=== PATIENT | male | born 1950 | race Caucasian/White ===

== ENCOUNTER 2016-08-01 01:24 | Emergency (ER) | payer MEDICARE, OTHER | END 2016-08-01 02:38 | disposition home or self-care (01) | LOC: D.ER 01:24 | DX: F41.9 Anxiety disorder, unspecified (principal); G89.29 Other chronic pain; I10 Essential (primary) hypertension ==

== ENCOUNTER 2016-08-01 04:41 | Emergency (ER) | payer MEDICARE, OTHER | END 2016-08-01 07:00 | disposition home or self-care (01) | LOC: D.ER 04:41 | DX: F41.9 Anxiety disorder, unspecified (principal); M54.2 Cervicalgia; I10 Essential (primary) hypertension ==

== ENCOUNTER → 2016-08-04 13:22 | Outpatient (CLI) | payer MEDICARE, OTHER | END | disposition home or self-care (01) | LOC: D.CT 08-01 15:30 | DX: R31.9 Hematuria, unspecified (principal) ==

== ENCOUNTER → 2017-06-04 07:32 | Outpatient (CLI) | payer MEDICARE, OTHER | END | disposition home or self-care (01) | LOC: D.CT 07:32 | DX: N20.0 Calculus of kidney (principal) ==